=== PATIENT | female | born 1980 | race Caucasian/White ===

== ENCOUNTER 2019-05-30 13:18 | Emergency (ER) | payer BC ==
[~2019-05-30] VITALS: Ht 165.1 cm; Wt 104.5 kg
[2019-05-30] MEDS ORDERED: ATOR40TA28 PO (13:29)
[2019-05-30] MEDS ORDERED: EMPA10TA PO (13:29)
[2019-05-30] MEDS ORDERED: AMLO5TAB9 PO (13:29)
[2019-05-30] MEDS ORDERED: METF-960 PO (13:29)
[2019-05-30 13:36] LABS: GLUCOSE,POINT OF CARE 168 MG/DL (70-110)
[2019-05-30] MEDS ORDERED: KETOROLAC TROMETHAMINE 60 MG/2 ML VIAL IM ONE (14:15)
[2019-05-30] MEDS ORDERED: LIDOCAINE 5% TRANSDERMAL PATCH TD ONE (14:15)
[2019-05-30] MEDS ORDERED: CYCLOBENZAPRINE HCL 10 MG TABLET PO ONE (14:15)
[2019-05-30 15:20] VITALS: BP 131/84
== END 2019-05-30 15:20 | disposition home or self-care (01) ==
LOC: EMS 13:19
DX: M54.5 Low back pain (principal); G89.29 Other chronic pain; M25.562 Pain in left knee; E11.9 Type 2 diabetes mellitus without complications; I50.9 Heart failure, unspecified; J45.909 Unspecified asthma, uncomplicated; Z79.899 Other long term (current) drug therapy; Z88.0 Allergy status to penicillin
CPT/HCPCS: 82962; 96372; 99283; J1885